=== PATIENT | male | born 1970 | race Caucasian/White ===

== ENCOUNTER 2025-03-04 03:47 | Emergency (ER) | payer OTHER, SELFPAY ==
[2025-03-04 03:48] VITALS: BP 128/92; PULSE 77; RESP 116; TEMP 36.8; O2SAT 95; BMI 30.2
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
--- NOTE | 2025-03-04 04:43 | RAD_ITS ---
PROCEDURE: KNEE 3 VIEWS 03/04/2025 REASON FOR EXAM: PAIN TECHNIQUE: Procedure Code: RADPAT Modality: DX Procedure: KNEE 3 VIEWS Laterality: Left COMPARISON: None FINDINGS: Bones: No fracture Joints: Mild lateral patellar tilt and mild patellofemoral joint space narrowing. No subluxation. Effusion: No effusion. Soft tissues: Soft tissues are unremarkable. Other: No foreign body RAD/Knee 3 Views IMPRESSION: Mild patellofemoral joint osteoarthritis. Reading Location: [id number]
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
[2025-03-04 05:48] VITALS: BP 135/93; PULSE 76; RESP 18; O2SAT 95
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
[2025-03-04 06:28] VITALS: BP 135/93; PULSE 75; RESP 16; TEMP 36.8; O2SAT 96
== END 2025-03-04 06:42 | disposition home or self-care (01) ==
PROVIDERS: Emergency Provider Emergency Medicine; PCP Internal Medicine; Visit Provider Emergency Medicine
DX: S16.1XXA Strain of muscle, fascia and tendon at neck level, initial encounter (principal); M17.12 Unilateral primary osteoarthritis, left knee; G35.D Multiple sclerosis, unspecified; M25.511 Pain in right shoulder; S80.212A Abrasion, left knee, initial encounter; S83.92XA Sprain of unspecified site of left knee, initial encounter; V67.5XXA Driver of heavy transport vehicle injured in collision with fixed or stationary object in traffic accident, initial encounter; M19.011 Primary osteoarthritis, right shoulder; Z79.899 Other long term (current) drug therapy
CPT/HCPCS: 70450; 72125; 73030; 73562; 99284

== ENCOUNTER → 2025-03-24 | Outpatient (CLI) | payer OTHER, SELFPAY | END | disposition home or self-care (01) | LOC: MRI 13:16 | PROVIDERS: PCP Internal Medicine; Referring Provider Physician Assistant Surgical; Visit Provider Physician Assistant Surgical | DX: S16.1XXA Strain of muscle, fascia and tendon at neck level, initial encounter (principal) | CPT/HCPCS: 72141 ==